=== PATIENT | male | born 1985 | race Caucasian/White ===

== ENCOUNTER 2017-06-07 05:22 | Emergency (ER) | payer SELFPAY ==
[~2017-06-07] VITALS: Ht 170.2 cm; Wt 79.4 kg
[2017-06-07] MEDS ORDERED: Mylanta II UD 30ml ORAL ONE (05:45)
[2017-06-07] MEDS ORDERED: Lidocaine 2% Visc 15ml soln ORAL ONE (05:45)
[2017-06-07] MEDS ORDERED: Dicyclomine HCl 10mg/5ml oral soln ORAL ONE (05:45)
--- NOTE | 2017-06-07 06:05 | Emergency Room Report ---
History of Present Illness General Chief Complaint: Abdominal Pain Source: Patient Present Illness HPI Patient is a 31-year-old male presented after increased epigastric pain. Patient gradual onset of symptoms. Patient had similar similar episodes in the past. The patient stated that he had similar symptoms which are worsened supine position. He reports having a pain predominantly in the epigastric and right upper quadrant area. Patient states he had 3 alcoholic drinks earlier in the day. He denied any vomiting. He had not had black or bloody stools. Allergies: Coded Allergies: PENICILLINS (Verified Allergy, Unknown, 06/07/17) Patient History Past Medical History: see triage record Reviewed Nursing Documentation: PMH: Agreed, PSxH: Agreed Nursing Documentation-PMH Past Medical History: No History, Except For Review of Systems All Other Systems: negative except mentioned in HPI Physical Exam Vital Signs Date Time Temp Pulse Resp B/P Pulse Ox O2 Delivery O2 Flow Rate FiO2 06/07/17 05:27 97.9 79 16 158/97 99 Room Air Sp02 EP Interpretation: reviewed, normal General Appearance: normal inspection, well appearing, no apparent distress, alert, GCS 15, non-toxic Head: atraumatic ENT: normal ENT inspection, hearing grossly normal, normal voice Neck: normal inspection, full range of motion, supple, no bony tend Respiratory: normal inspection, lungs clear, normal breath sounds, no respiratory distress, no retraction, no wheezing Cardiovascular #1: regular rate, rhythm, no edema Gastrointestinal: normal inspection, normal bowel sounds, soft, no guarding, no hernia, tenderness - epigastric and RUQ Genitourinary: no CVA tenderness Musculoskeletal: normal inspection, back normal, normal range of motion Neurologic: normal inspection, alert, oriented x3, responsive, 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 Differential diagnoses included ischemic bowel, appendicitis, perforated viscus, abdominal aortic aneurysm, inferior myocardial infarction, viral gastroenteritis Because of complexity of patient's case laboratory testing and imaging studies were ordered.The patient was given a GI cocktail and IV Zofran.Patient given IV Pepcid. He had some improvement in pain. Laboratory studies showed evidence of a mild hepatic inflammation which is likely due to patient's recent alcohol use. The patient's history is consistent with some gastritis. Patient was given prescription for acid blockers. Patient advised to recheck with his primary care physician in the next one to 2 days. Labs Test 06/07/17 06:07 White Blood Count 6.0 K/UL (4.8-10.8) Red Blood Count 4.60 M/UL (4.70-6.10) Hemoglobin 13.9 G/DL (14.2-18.0) Hematocrit 42.1 % (42.0-52.0) Mean Corpuscular Volume 92 FL (80-99) Mean Corpuscular Hemoglobin 30.2 PG (27.0-31.0) Mean Corpuscular Hemoglobin Concent 33.0 G/DL (32.0-36.0) Red Cell Distribution Width 11.1 % (11.6-14.8) Platelet Count 251 K/UL (150-450) Mean Platelet Volume 7.5 FL (6.5-10.1) Neutrophils (%) (Auto) 46.4 % (45.0-75.0) Lymphocytes (%) (Auto) 38.0 % (20.0-45.0) Monocytes (%) (Auto) 12.2 % (1.0-10.0) Eosinophils (%) (Auto) 2.2 % (0.0-3.0) Basophils (%) (Auto) 1.2 % (0.0-2.0) Prothrombin Time 9.9 SEC (9.30-11.50) Prothromb Time International Ratio 0.9 (0.9-1.1) Activated Partial Thromboplast Time 28 SEC (23-33) Urine Color Pale yellow Urine Appearance Clear Urine pH 7 (4.5-8.0) Urine Specific [place] 1.010 (1.005-1.035) Urine Protein Negative (NEGATIVE) Urine Glucose (UA) Negative (NEGATIVE) Urine Ketones Negative (NEGATIVE) Urine Occult Blood 1+ (NEGATIVE) Urine Nitrite Negative (NEGATIVE) Urine Bilirubin Negative (NEGATIVE) Urine Urobilinogen Normal MG/DL (0.0-1.0) Urine Leukocyte Esterase Negative (NEGATIVE) Urine RBC 0-2 /HPF (0 - 0) Urine WBC 0-2 /HPF (0 - 0) Urine Squamous Epithelial Cells Occasional /LPF Urine Amorphous Sediment Few /LPF (NONE) Urine Bacteria Few /HPF (NONE) Sodium Level 137 mEQ/L (135-145) Potassium Level 3.7 mEQ/L (3.4-4.9) Chloride Level 97 mEQ/L (98-107) Carbon Dioxide Level 25 mEQ/L (20-30) Anion Gap 15 (5-15) Blood Urea Nitrogen 9 mg/dL (7-23) Creatinine 1.0 mg/dL (0.7-1.2) Estimat Glomerular Filtration Rate > 60 mL/min (>60) Glucose Level 109 mg/dL (74-106) Calcium Level 9.7 mg/dL (8.6-10.2) Total Bilirubin 0.3 mg/dL (0.0-1.2) Aspartate Amino Transf (AST/SGOT) 26 U/L (5-40) Alanine Aminotransferase (ALT/SGPT) 51 U/L (3-41) Alkaline Phosphatase 69 U/L (40-129) Troponin I < 0.30 ng/mL (<=0.30) Total Protein 7.4 g/dL (6.6-8.7) Albumin 5.0 g/dL (3.5-5.2) Globulin 2.4 g/dL Albumin/Globulin Ratio 2.0 (1.0-2.7) Lipase 36 U/L (< 60) Last Vital Signs Date Time Temp Pulse Resp B/P Pulse Ox O2 Delivery O2 Flow Rate FiO2 06/07/17 05:27 97.9 79 16 158/97 99 Room Air Status: improved Disposition: HOME, SELF-CARE Condition: Stable Scripts Omeprazole Magnesium (PRILOSEC OTC) 20 Mg Tablet.dr 20 MG ORAL DAILY, #30 TAB Prov: Say Bucio 06/07/17 Ondansetron (Zofran) 4 Mg Tablet 4 MG ORAL Q6H Y for Nausea & Vomiting, #30 TAB 0 Refills Prov: Say Bucio 06/07/17 Referrals: NOT CHOSEN IPA/,REFERRING (PCP) Say Bucio Jun 07, 2017 06:05
[2017-06-07 06:31] LABS: BASOPHILS % (AUTO) 1.2 % (0.0-2.0); EOSINOPHILS % (AUTO) 2.2 % (0.0-3.0); MEAN CORPUSCULAR HEMOGLOBIN 30.2 PG (27.0-31.0); MEAN CORPUSCULAR VOLUME 92 FL (80-99); MEAN PLATELET VOLUME 7.5 FL (6.5-10.1); MONOCYTES % (AUTO) 12.2 % (1.0-10.0); NEUTROPHILS % (AUTO) 46.4 % (45.0-75.0); PLATELET COUNT 251 K/UL (150-450); RED CELL DISTRIBUTION WIDTH 11.1 % (11.6-14.8)
[2017-06-07 06:32] LABS: APPEARANCE,URINE CLEAR; KETONES,URINE NEGATIVE (NEGATIVE); LEUKOCYTE ESTERASE ,URINE NEGATIVE (NEGATIVE); NITRITE,URINE NEGATIVE (NEGATIVE); PH,URINE 7 (4.5-8.0); PROTEIN,URINE NEGATIVE (NEGATIVE); UROBILINOGEN,URINE NORMAL MG/DL (0.0-1.0)
[2017-06-07 06:41] LABS: AMORPHOUS SEDIMENT,UR FEW /LPF; BACTERIA,URINE FEW /HPF; RBC,URINE 0-2 /HPF (0 - 0); SQUAMOUS EPITHELIAL CELL,UR OCCASIONAL /LPF (NONE/OCC); WBC,URINE 0-2 /HPF (0 - 0)
[2017-06-07 06:49] LABS: INR 0.9 (0.9-1.1); PROTHROMBIN TIME 9.9 SEC (9.30-11.50)
[2017-06-07 06:55] LABS: TROPONIN I < 0.30 ng/mL (<=0.30)
[2017-06-07 06:58] LABS: ALANINE AMINOTRANSFERASE 51 U/L (3-41); ANION GAP 15 (5-15); ASPARTATE AMINO TRANSFERASE 26 U/L (5-40); CALCIUM 9.7 mg/dL (8.6-10.2); CARBON DIOXIDE 25 mEQ/L (20-30); CHLORIDE 97 mEQ/L (98-107); GLOMERULAR FILTRATION RATE > 60 mL/min (>60); HEMOLYSIS 8; LIPASE 36 U/L (< 60); POTASSIUM 3.7 mEQ/L (3.4-4.9); SODIUM 137 mEQ/L (135-145); TOTAL PROTEIN 7.4 g/dL (6.6-8.7)
[2017-06-07 07:00] VITALS: BP 135/90
[2017-06-07] MEDS ORDERED: Famotidine 20 MG/ 2ML VIAL IVP ONE (07:00)
[2017-06-07] MEDS ORDERED: ZOFRAN4 MG ORAL (07:16)
[2017-06-07] MEDS ORDERED: PRILOSEC OTC20 MG ORAL (07:16)
[2017-06-07 07:30] VITALS: BP 135/90
== END 2017-06-07 07:30 | disposition home or self-care (01) ==
LOC: EMR 05:38
DX: R10.13 Epigastric pain (principal); Z88.0 Allergy status to penicillin
CPT/HCPCS: 36415; 80053; 81003; 83690; 84484; 85025; 85610; 85730; 96360; 96374; 96375; 99284; J2405; S0028

== ENCOUNTER 2017-06-10 03:45 | Emergency (ER) | payer MEDICAID, OTHER ==
[~2017-06-10] VITALS: Ht 170.2 cm; Wt 79.4 kg
[~2017-06-10 03:45] MED LIST: PRILOSEC OTC20 MG ORAL; ZOFRAN4 MG ORAL
[2017-06-10 03:58] VITALS: BP 135/94
[2017-06-10] MEDS ORDERED: Lidocaine 2% Visc 15ml soln ORAL ONE (04:00)
[2017-06-10] MEDS ORDERED: Famotidine 20 MG/ 2ML VIAL IVP ONE (04:00)
[2017-06-10] MEDS ORDERED: Pantoprazole Inj IV ONE (04:00)
[2017-06-10] MEDS ORDERED: Morphine Sulfate 2mg/ml Inj IVP ONE (04:00)
--- NOTE | 2017-06-10 04:20 | Emergency Room Report ---
History of Present Illness General Chief Complaint: Abdominal Pain Source: Patient, Medical Record Present Illness HPI 31YOM walk-in with severe epigastric pain that awoke him from sleep and concern for "swelling under my ribs". Pain is worse at this same time of night Was here 2 days ago for similar. Labs only remarkable for mild AST elevation Has been taking omeprazole and zofran Allergies: Coded Allergies: PENICILLINS (Verified Allergy, Unknown, 06/07/17) Patient History Past Medical History: none Past Surgical History: none Pertinent Family History: none Social History: Denies: alcohol use, drug use, smoking Immunizations: UTD Reviewed Nursing Documentation: PMH: Agreed, PSxH: Agreed Review of Systems All Other Systems: negative except mentioned in HPI Physical Exam Vital Signs Date Time Temp Pulse Resp B/P Pulse Ox O2 Delivery O2 Flow Rate FiO2 06/10/17 03:51 97.3 66 15 140/ 100 Room Air Sp02 EP Interpretation: reviewed, normal General Appearance: normal inspection, well appearing, no apparent distress, alert, GCS 15, non-toxic, other - crying, tearful Head: normocephalic, atraumatic Eyes: bilateral eye EOMI, bilateral eye PERRL ENT: normal ENT inspection, hearing grossly normal, normal voice Neck: normal inspection, full range of motion, supple, no bony tend Respiratory: normal inspection, lungs clear, normal breath sounds, no respiratory distress, no retraction, no wheezing Cardiovascular #1: regular rate, rhythm, no edema Gastrointestinal: normal inspection, normal bowel sounds, soft, no guarding, no hernia, other - epigastric ttp Genitourinary: no CVA tenderness Musculoskeletal: normal inspection, back normal, normal range of motion, Ronda' s Sign negative Neurologic: normal inspection, alert, oriented x3, responsive, 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 Afebrile. - Labs: No leuks, H&H stable. Acute increase in lipase - Known ETOH abuse preceeding prior ED visit - CTAP: No acute pancreatitis. Fatty liver. GB wall thickened. Tentatively Admit for med/surg admission for acute pancreatitis/gastritis/ intractable pain and need for endoscopy Endorsed to Dr Walton at 630am to followup abd ultrasound Patient will await results of sono then discuss with his mother, check their insurance coverage and decide if agreeable for admit at that time. Last Vital Signs Date Time Temp Pulse Resp B/P Pulse Ox O2 Delivery O2 Flow Rate FiO2 06/10/17 03:51 97.3 66 15 140/ 100 Room Air Status: improved Disposition: ADMITTED INPATIENT Condition: Serious Scripts Omeprazole (OMEPRAZOLE) 40 Mg Capsule. 40 MG ORAL TWICE A DAY for 14 Days, #30 CAP Prov: CHRISTAL CLAIRE M.D. 06/10/17 Famotidine (PEPCID) 20 Mg Tablet 20 MG ORAL BID for 14 Days, #30 TAB 0 Refills Prov: CHRISTAL CLAIRE M.D. 06/10/17 CHRISTAL CLAIRE M.D. Jun 10, 2017 04:20
[2017-06-10 04:28] LABS: BASOPHILS % (AUTO) 1.1 % (0.0-2.0); EOSINOPHILS % (AUTO) 1.4 % (0.0-3.0); LYMPHOCYTES % (AUTO) 24.3 % (20.0-45.0); MEAN CORPUSCULAR HEMOGLOBIN 30.3 PG (27.0-31.0); MEAN CORPUSCULAR HGB CONC 33.7 G/DL (32.0-36.0); MEAN CORPUSCULAR VOLUME 90 FL (80-99); MEAN PLATELET VOLUME 7.1 FL (6.5-10.1); MONOCYTES % (AUTO) 9.1 % (1.0-10.0); NEUTROPHILS % (AUTO) 64.2 % (45.0-75.0); PLATELET COUNT 273 K/UL (150-450); RED BLOOD COUNT 4.88 M/UL (4.70-6.10); RED CELL DISTRIBUTION WIDTH 10.8 % (11.6-14.8); WHITE BLOOD COUNT 7.6 K/UL (4.8-10.8)
[2017-06-10] MEDS ORDERED: OMEPRAZOLE40 M1 ORAL (04:33)
[2017-06-10] MEDS ORDERED: PEPCID20 MG ORAL (04:33)
[2017-06-10 04:48] LABS: ALANINE AMINOTRANSFERASE 47 U/L (3-41); ALBUMIN/GLOBULIN RATIO 1.6 (1.0-2.7); ANION GAP 22 (5-15); ASPARTATE AMINO TRANSFERASE 27 U/L (5-40); CALCIUM 10.5 mg/dL (8.6-10.2); CARBON DIOXIDE 24 mEQ/L (20-30); CHLORIDE 95 mEQ/L (98-107); CREATININE 0.9 mg/dL (0.7-1.2); GLOMERULAR FILTRATION RATE > 60 mL/min (>60); HEMOLYSIS 4; LIPASE 173 U/L (< 60); POTASSIUM 3.8 mEQ/L (3.4-4.9); SODIUM 141 mEQ/L (135-145); TOTAL PROTEIN 8.1 g/dL (6.6-8.7)
[2017-06-10 05:58] VITALS: BP 130/81
[2017-06-10] MEDS ORDERED: NORCO 5-325 TA1 EACH ORAL (07:16)
[2017-06-10 07:30] VITALS: BP 128/83
--- NOTE | 2017-06-10 10:06 | Diagnostic Imaging Report ---
Clinical Indication: Abdominal pain Technique: No oral contrast utilized, per emergency room physician request IV administration nonionic contrast. Venous phase spiral acquisition obtained through the abdomen and pelvis. Multiplanar reconstructions were generated. Total dose length product 862 mGycm. CTDIvol(s) 16 mGy. Dose reduction achieved using automated exposure control Comparison: None Findings: Normal appendix. No evidence of diverticulosis or diverticulitis. Densities within the colon lumen likely reflect ingested material. No small bowel distention. No free or loculated intraperitoneal air or fluid is demonstrated. The distal esophagus, stomach, duodenum are unremarkable. The gallbladder wall is somewhat thickened and edematous. Questionable densities are seen near the neck, could indicate stones. No biliary ductal dilatation. The liver is mildly hypoattenuating, consistent with fatty change. No focal abnormality demonstrated. The pancreas is unremarkable. The spleen is unremarkable. The adrenals are unremarkable. The kidneys demonstrates fluid attenuation cysts on the left. There are also bilateral subcentimeter low-attenuation lesions which are too small to characterize but most likely represent benign simple cyst. A 2 mm calculus is seen in the left renal lower pole. No hydronephrosis or hydroureter. No retroperitoneal mass or adenopathy. Prominent lymph nodes are seen in the right lower quadrant mesentery. No pelvic mass or adenopathy. The included lung bases demonstrate minimal posterior dependent atelectatic change. Impression: Edematous gallbladder, could indicate acute cholecystitis. Correlate with sonographic findings. Nonspecific prominent right lower quadrant lymph nodes Nonobstructing 2 mm left lower pole renal calculus Left renal cysts. Subcentimeter bilateral low-attenuation renal lesions, too small to characterize, most likely benign cortical cysts. No further followup necessary Fatty liver This agrees with the preliminary interpretation provided overnight by [facility] teleradiology service. The CT scanner at [facility] is accredited by the [employer] and the scans are performed using protocols designed to limit radiation exposure to as low as reasonably achievable to attain images of sufficient resolution adequate for diagnostic evaluation.
--- NOTE | 2017-06-10 15:01 | Diagnostic Imaging Report ---
Indication: Abdominal pain Technique: Carpenter-scale and duplex images of the upper abdomen were obtained Comparison: Reference made to CT scan performed 2 hours earlier Findings: Gallbladder demonstrates gallstones. Technologist reports positive sonographic Dutta's sign. Gallbladder wall is thickened, measuring 5 mm thick. Common bile duct measures 7 mm in diameter. No intrahepatic biliary ductal dilatation. Liver demonstrates diffusely increased echogenicity, consistent with diffuse hepatocellular disease, most likely fatty change. Portal vein and hepatic veins are patent. Pancreas is unremarkable. Spleen is unremarkable. Left kidney measures 11.2 cm in length. Right kidney measures 10.4 cm length. Both kidneys demonstrate normal echogenicity. There is no hydronephrosis. No focal abnormality. Note that cysts described on recent CT scan are not evident sonographically. Non-aneurysmal abdominal aorta . Impression: Cholelithiasis. Gallbladder wall thickening and positive sonographic Dutta's sign is suspicious for acute cholecystitis. Consider nuclear medicine hepatobiliary scan for further evaluation if clinically indicated Mildly ectatic common bile duct. Suspect artifactual, as this is not demonstrated on CT scan of the hours earlier. Nonetheless, correlation with liver function tests is recommended Liver demonstrates diffusely increased echogenicity, consistent with diffuse hepatocellular disease, most likely fatty change.
== END 2017-06-10 07:30 | disposition home or self-care (01) ==
LOC: EMR 04:00
DX: R10.13 Epigastric pain (principal); K85.90 Acute pancreatitis without necrosis or infection, unspecified; N20.0 Calculus of kidney; N28.1 Cyst of kidney, acquired; K76.0 Fatty (change of) liver, not elsewhere classified; Z88.0 Allergy status to penicillin
CPT/HCPCS: 36415; 74177; 76700; 80053; 83690; 85025; 96374; 96375; 99284; C9113; J2270; J2405; Q9967; S0028